=== PATIENT | female | born 1990 | race Caucasian/White ===

== ENCOUNTER 2016-06-29 09:36 | Emergency (ER) | payer MEDICAID | END 2016-06-29 11:50 | disposition home or self-care (01) | LOC: ER 09:36 | DX: J01.90 Acute sinusitis, unspecified (principal); Z91.040 Latex allergy status | CPT/HCPCS: 81001; 87088; 87804; 87880 ==

== ENCOUNTER 2016-07-09 05:42 | Inpatient (IN) | payer MEDICAID ==
[~2016-07-09] VITALS: Ht 152.4 cm; Wt 58.1 kg
[2016-07-09 06:27] VITALS: Ht 152.4 cm; Wt 58.1 kg
[2016-07-09] MEDS: LACT RINGERS 1,000 ML IV SCH ×4 (06:30→20:10)
[2016-07-09] MEDS ORDERED: ACETAMINOPHEN 325 MG TAB PO PRN (07:25)
[2016-07-09] MEDS ORDERED: FAMOTIDINE 20 MG TAB PO PRN (07:25)
[2016-07-09] MEDS ORDERED: METOCLOPRAMIDE 10 MG/2 ML VIAL IV PUSH PRN (07:25)
[2016-07-09] MEDS ORDERED: BUTORPHANOL 1 MG/ML VIAL IV ONE (07:25)
[2016-07-09] MEDS ORDERED: ALU/MAG/SIM 30 ML UDC PO PRN (07:25)
[2016-07-09] MEDS ORDERED: PROMETHAZINE 25 MG/ML VIAL IV PRN (07:25)
[2016-07-09] MEDS ORDERED: CEFAZOLIN (LD/OB) 100 ML IV PRN (07:25)
[2016-07-09] MEDS ORDERED: TERBUTALINE 1 MG/ML VIAL SUBQ PRN (07:25)
[2016-07-09] MEDS ORDERED: FAMOTIDINE 20 MG INJ IV PRN (07:25)
[2016-07-09] MEDS ORDERED: OXYTOCIN 15 UNITS/250 ML NS 250 ML IV SCH ×3 (07:25→23:35)
[2016-07-09] MEDS ORDERED: ONDANSETRON 4 MG VIAL IV PRN (07:25)
[2016-07-09] MEDS ORDERED: OXYTOCIN 15 UNITS/250 ML NS 500 ML IV ONE (07:30)
[2016-07-09] MEDS ORDERED: PROCHLORPERAZINE 10 MG/2 ML VIAL IV ONE (11:30)
[2016-07-09] MEDS ORDERED: ROPIV/FENT 0.2%-2MCG/ML 100 ML EPIDURAL ONE (15:45)
[2016-07-09] MEDS ORDERED: FENTANYL 100 MCG/2 ML AMP ONE (15:46)
[2016-07-09] MEDS ORDERED: FENTANYL 100 MCG/2 ML AMP EPIDURAL ONE (17:20)
[2016-07-09] MEDS ORDERED: ROPIV/FENT 0.2%-2MCG/ML 100 ML EPIDURAL SCH (17:20)
[2016-07-09] MEDS ORDERED: LACT RINGERS 500 ML IV ONE (17:20)
[2016-07-09] MEDS ORDERED: LACT RINGERS 500 ML IV PRN (17:20)
[2016-07-09] MEDS ORDERED: SODIUM CHLORIDE 0.9% 500 ML IV PRN (17:20)
[2016-07-09] MEDS ORDERED: **ONLY ANESTEHSIA MAY ORDER OPIATES WHILE ON EPIDURAL XX SCH (20:00)
[2016-07-09 22:15] VITALS: BP_SYST 112; RESP 20
[2016-07-09 22:30] VITALS: BP_SYST 105; RESP 20; TEMP 98
[2016-07-09 22:45] VITALS: BP_SYST 92; RESP 20
[2016-07-09 23:00] VITALS: BP_SYST 105; RESP 20
[2016-07-09 23:30] VITALS: BP_SYST 112; RESP 20
[2016-07-09] MEDS ORDERED: TDaP 0.5 ML VIAL IM.VACC ONE (23:35)
[2016-07-09] MEDS ORDERED: ASTRINGENT MED PADS 40'S TOPICAL PRN (23:35)
[2016-07-09] MEDS ORDERED: DERMOPLAST SPRAY TOPICAL PRN (23:35)
[2016-07-09] MEDS ORDERED: SALINE FLUSH 10 ML FLUSH PRN (23:35)
[2016-07-10] VITALS (9 sets, daily range): BP systolic 90–121; RESP 14–24; TEMP 97.2–98.3
[2016-07-10] MEDS: Ibuprofen 600 MG TAB PO SCH ×4 (00:26→17:39)
[2016-07-10] MEDS: DOCUSATE SOD 100 MG CAP PO SCH (08:16)
[2016-07-10] MEDS ORDERED: TDaP 0.5 ML VIAL IM.VACC ONE (11:57)
[2016-07-11] MEDS: Ibuprofen 600 MG TAB PO SCH ×2 (00:31→05:40)
[2016-07-11] MEDS: DOCUSATE SOD 100 MG CAP PO SCH (08:40)
[2016-07-11 08:43] VITALS: BP_SYST 121; RESP 14; TEMP 97.2
[2016-07-11 09:15] VITALS: BP_SYST 112
[2016-07-11 09:16] VITALS: RESP 18; TEMP 98.1
== END 2016-07-11 11:29 | disposition home or self-care (01) | DRG 775 ==
LOC: LD 05:42 → EEVIPCON 05:42 → OB 07-10 01:28
PROVIDERS: ADMIT Obstetrics & Gynecology Reproductive Endocrinology; ATTEND Obstetrics & Gynecology Reproductive Endocrinology
PROC: 10E0XZZ Delivery of Products of Conception, External Approach (ICD-10-PCS; principal; 2016-07-09)
PROC: 0KQM0ZZ Repair Perineum Muscle, Open Approach (ICD-10-PCS; 2016-07-09)
PROC: 3E033VJ Introduction of Other Hormone into Peripheral Vein, Percutaneous Approach (ICD-10-PCS; 2016-07-09)
PROC: 0W8NXZZ Division of Female Perineum, External Approach (ICD-10-PCS; 2016-07-09)
DX: O36.5930 Maternal care for other known or suspected poor fetal growth, third trimester, not applicable or unspecified (principal); O70.1 Second degree perineal laceration during delivery; Z3A.37 37 weeks gestation of pregnancy; Z37.0 Single live birth
CPT/HCPCS: 85014; 85018; 85025; 88307; 96372